=== PATIENT | female | born 1945 | race Caucasian/White ===

== ENCOUNTER → 2024-08-02 07:41 | Outpatient (REF) | payer MEDICARE, BC, SELFPAY | LOC: HWRAD 07:41 | PROVIDERS: ATTENDING PHYSICIAN Student in an Organized Health Care Education/Training Program; FAMILY PHYSICIAN Internal Medicine | DX: S72.21XA Displaced subtrochanteric fracture of right femur, initial encounter for closed fracture (principal) | CPT/HCPCS: 73700 ==